=== PATIENT | male | born 1950 | race Caucasian/White ===

== ENCOUNTER → 2020-10-08 | Outpatient (CLI) | payer MEDICARE, OTHER ==
--- NOTE | 2020-10-11 03:21 | ECWPNPC ---
PATIENT NAME: JOSIAH ANDREWS : 1950 GENDER: MALE VISIT DATE: 10/08/2020 DISCHARGE DATE: 10/08/20 1439 VISIT LOCKED DATE TIME: PHYSICIAN: ADAN ANTHONY RESOURCE: ADAN ANTHONY REASON FOR APPOINTMENT 1. CHRONIC BACK PAIN HISTORY OF PRESENT ILLNESS DEPRESSION SCREENING: PHQ-2 (2015 EDITION) LITTLE INTEREST OR PLEASURE IN DOING THINGS?NOT AT ALL FEELING DOWN, DEPRESSED, OR HOPELESS?NOT AT ALL TOTAL SCORE0 GENERAL: 70 Y/O GENTLEMAN REFERRED BY [facility] TO EVALUATE CHRONIC LOW BACK PAIN.HAS PARKINSONS DISEASE THAT IS QUITE ADVANCED.IT IS VERY DIFFICULT FOR HIM TO STAND UNASSISTED.STATES PAIN IS SO BAD IN HIS BACK,LEGS AND KNEES THAT HE HAS TO CRAWL TO BATHROOM IN AM.CURRENTLY ATTENDING PT.HAVING LESS FALLING EPISODES SINCE HAVING CHANGES IN HIS PARKINSONS MEDICATIONS. ACCOMPANIED IN EXAM ROOM WITH HIS . REVIEWED MRI OF THE LUMBAR SPINE AND DISCUSS TREATMENT PLAN. - - -. FALL RISK SCREENING: SCREENING SEVERAL FALL AT HOME DUE TO HIS BALANCE PROBLEMS. PAIN SCREENING: PATIENT HAS A COMPLAINT OF ACUTE OR CHRONIC PAIN :YES LOCATION OF PAIN:LOW BACK INTENSITY OF PAIN (SCALE OF 1 TO 10):4 WHAT DOES YOUR PAIN FEEL LIKE:ACHING, CONTINOUS DURATION:CONTINOUS, CONSTANT, ALL DAY PAIN IS INCREASED BY:ACTIVITIES PAIN IS DECREASED BY:USE OF PAIN MEDICATIONS, OTHERS RESTING NURSING NOTE: - - -. PAIN CENTER INTAKE QUESTIONS: DO YOU HAVE A HISTORY OF MRSA? :NO DO YOU TAKE A BLOOD THINNERS? :NO DO YOU HAVE ANY BLEEDING DISORDERS? :NO ANY NEW NUMBNESS OR WEAKNESS IN YOUR LEGS OR ARMS? :YES BILATERAL LEGS ANY PACEMAKER,DEFIBRILLATOR, OR DORSAL COLUMN STIMULATOR? :NO DO YOU HAVE ANY RASHES OR OPEN SORES? :NO ARE YOU ALLERGIC TO IV DYE? :NO ARE YOU DIABETIC? :NO ANY NEW PROBLEMS WITH YOUR MEDICATIONS? :NO HAVE YOU RECEIVED A VACCINE IN THE PAST 30 DAYS? :NO DO YOU PLAN TO RECEIVE A VACCINE IN THE NEXT 21 DAYS? :NO DO YOU NEED ANY PRESCRIPTION? :NO DO YOU TAKE ANY IMMUNOSUPPRESSIVE MEDICATIONS? :NO IS THERE A CHANCE YOU COULD BE ? :NO ARE YOU BREAST FEEDING? :NO CURRENT MEDICATIONS TAKING ATENOLOL 50 MG TABLET 1 TABLET ORALLY ONCE A DAY TAKING CARBIDOPA-LEVODOPA 25-100 MG TABLET 1 TABLET ORALLY TWICE A DAY TAKING CARBIDOPA-LEVODOPA ER 50-200 MG TABLET EXTENDED RELEASE 1 TABLET ORALLY TWICE A DAY TAKING DULOXETINE HCL 30 MG CAPSULE DELAYED RELEASE PARTICLES 1 CAPSULE ORALLY ONCE A DAY TAKING ETODOLAC 300 MG CAPSULE 1 CAPSULE WITH FOOD ORALLY TWICE A DAY TAKING HYDROCHLOROTHIAZIDE 25 MG TABLET 1 TABLET IN THE MORNING ORALLY ONCE A DAY TAKING OXYCODONE-ACETAMINOPHEN 5-325 MG TABLET 1 TABLET NEEDED ORALLY EVERY 6 HRS TAKING AZILECT 1 MG TABLET 1 TABLET ORALLY ONCE A DAY TAKING ROPINIROLE HCL 1 MG TABLET 1 TABLET 1 TO 3 HOURS BEFORE BEDTIME ORALLY ONCE A DAY TAKING FLOMAX 0.4 MG CAPSULE 1 CAPSULE ORALLY ONCE A DAY TAKING TIZANIDINE HCL 2 MG TABLET 1 TABLET NEEDED ORALLY THREE TIMES A DAY, NOTES: NOT SURE HOW MANY TIME A DAY TAKING MELATONIN 200 MCG TABLET DIRECTED ORALLY , NOTES: NOT SURE THE DOSE TAKING VITAMIN D3 10 MCG (400 UNIT) TABLET 1 TABLET ORALLY ONCE A DAY TAKING STOOL SOFTENER 100 MG TABLET 1 TABLET NEEDED ORALLY ONCE A DAY TAKING COQ-10 50 MG CAPSULE DIRECTED ORALLY , NOTES: NOT SURE OF DOSE MEDICATION LIST REVIEWED AND RECONCILED WITH THE PATIENT PAST MEDICAL HISTORY BALANCE DIFFICULTIES PARKINSON'S DISEASE DYSKINESIA LOW BACK PAIN BILATERAL KNEE PAIN TORN MENISCUS INTERMITTED BLADDER INCONTINENCE OCCASIONAL BOWEL CONSTIPATION SMOKER SEVERAL FALL AT HOME DUE TO HIS BALANCE PROBLEMS LEFT SHOULDER PAIN ALLERGIES N.K.D.A. SURGICAL HISTORY LEFT SHOULDER SURG 1991 VASECTOMY 1990 HERNIA SURG MID FAMILY HISTORY FATHER: ALIVE 91 YRS MOTHER: 54 YRS, CANCER SIBLINGS: ALIVE 71 YRS SON(S): ALIVE 1 BROTHER(S) . 4 SON(S) , 1 DAUGHTER(S) - HEALTHY. ONE SON . SOCIAL HISTORY GENERAL: TOBACCO USE ARE YOU A:CURRENT SMOKER ARE YOU INTERESTED IN QUITTING?THINKING ABOUT QUITTING COUNSELED THE PATIENT ON SMOKING CESSATION, EDUCATION [id number]/23/2021 HOW MANY CIGARETTES A DAY DO YOU SMOKE?6-10 HOW SOON AFTER YOU WAKE UP DO YOU SMOKE YOUR FIRST CIGARETTE?AFTER 60 MIN HOW OFTEN DO YOU SMOKE CIGARETTES?EVERY DAY PATIENT COUNSELED ON THE DANGERS OF TOBACCO USE AND URGED TO QUIT:10/08/2020 LATEX QUESTIONNAIRE LATEX ALLERGY : HAVE YOU EVER DEVELOPED ANY TYPE OF REACTION AFTER HANDLING LATEX PRODUCTS SUCH RUBBER GLOVES, CONDOMS, DIAPHRAGMS, BALLOONS, SOCKS, OR UNDERWEAR?NO LATEX ALLERGY : HAVE YOU EVER DEVELOPED ANY TYPE OF REACTION DURING OR AFTER DENTAL APPOINTMENT, VAGINAL/RECTAL EXAMINATION, SURGICAL PROCEDURE, OR ANY OTHER EXPOSURE?NO LATEX RISK : HAVE YOU EVER HAD ANY DIFFICULTY BREATHING OR HIVES AFTER EATING OR HANDLING ANY FRUITS, OR VEGETABLES; SUCH KIWI, BANANAS, STONE FRUITS, OR CHESTNUTSNO LATEX RISK : DO YOU HAVE A PREVIOUS PERSONAL HISTORY OF MORE THAN NINE SURGERIES, SPINA BIFIDA, OR REPEATED CATHERIZATIONS? NO LATEX RISK : ARE YOU FREQUENTLY EXPOSED TO LATEX PRODUCTS IN YOUR OCCUPATION?NO DATE ASKED : 10/08/2020 ALCOHOL USE: YES, 2 CANS OF BEER PER WEEK. LUNG CANCER SCREENING SMOKING STATUS:CURRENT SMOKER IS THE PATIENT BETWEEN THE AGE OF 57 AND 79?YES HAS THE PATIENT EVER BEEN DIAGNOSED WITH LUNG CANCER?NO RECREATIONAL DRUG USE DRUG USE?NO LANGUAGE LANGUAGES SPOKEN:[place]ER[place] LEONEAN LEARNING BARRIERS / SPECIAL NEEDS CHANGE FROM LAST VISIT?NO BARRIERS TO LEARNING?NO HEARING IMPAIRED?YES VISION IMPAIRED?YES :CORRECTIVE LENSES COGNITIVELY IMPAIRED?NO READINESS TO LEARN?YES LEARNING PREFERENCES?NO LEARNING CAPABILITIES PRESENT?YES EMOTIONAL BARRIERS?YES COMMENTS DEPRESSION SPECIAL DEVICES?YES :WALKER, WHEELCHAIR NEEDED SERVICE CLEANER NEEDED?NO MARITAL STATUS: . HOSPITALIZATION/MAJOR DIAGNOSTIC PROCEDURE LEFT SHOULDER HEIDI 1991 REVIEW OF SYSTEMS CONSTITUTIONAL: ANY RECENT FEVER NO . CHILLS NO . WEIGHT CHANGE OF UNKNOWN REASONS NO . GASTROENTEROLOGY: NEW UNEXPLAINABLE CHANGES IN BOWEL CONTROL NO . CONSTIPATION NO . GENITOURINARY: ANY NEW CHANGE IN BLADDER CONTROL? NO . NEUROLOGY: NEW ONSET DIZZINESS OR NEUROLOGICAL CHANGES NOT MENTIONED NO . NEW NUMBNESS OR PAIN PATTERNS NOT MENTIONED AND PERTINENT TO TODAY'S VISIT NO . CARDIOLOGY: NEW CHEST PRESSURE NO . PATIENT DENIES NO . RESPIRATORY: UNEXPLAINABLE COUGH NO . NEW SHORTNESS OF BREATH NO . VITAL SIGNS WT 206.0 LBS, HT 58 IN, BMI 43.05 INDEX, BP 150/91 MM HG, REPEAT BP 127/88 MM HG, HR 68 /MIN, RR 18 /MIN, TEMP 98.7 F, OXYGEN SAT % 97%, SAFE IN ENV? (Y/N) YES, NA INITIALS AW [email or web address].JEROME GOMEZ. EXAMINATION GENERAL EXAMINATION: GENERALNO ACUTE DISTRESS, WELL NOURISHED AND HYDRATED.IN WHEELCHAIR.DYSKINESIC MOVEMENT NOTED THROUGHOUT VISIT.. NECK:NO LYMPHADENOPATHY, SUPPLE. LUNGS:CLEAR TO AUSCULTATION BILATERALLY, NO WHEEZES, RHONCHI, RALES. HEART:NO MURMURS, REGULAR RATE AND RHYTHM. MUSCULOSKELETAL:SLIGHT WEAKNESS NOTED OVER LOWER EXTREMITIES.. LUMBAR: RELATIVELY NON TENDER ON EXAM. DIAGNOSTIC TESTS REVIEWED MRI L/S SPINE-06/17/20. ASSESSMENTS SPINAL STENOSIS, LUMBOSACRAL REGION - M48.07 (PRIMARY) TREATMENT SPINAL STENOSIS, LUMBOSACRAL REGION START BELBUCA 150 MCG FILM, 150 MCG, 1 FILM, BUCCAL, Q12H MDD2, 30 DAYS, 60, REFILLS 1 NOTES: START BELBUCA 150 MCG TWICE DAILY/PLACE IN CHEEK AND HOLD UNTIL DISSOLVED.ONLY USE OXYCODONE IF ABSOLUTELY NECESSARY ONCE STARTING BELBUCA.WE WILL SCHEDULE PHONE FOLLOW UP APPOINTMENT IN 2 WEEKS. , [employer] REGISTRY REVIEWED AND DEMONSTRATES COMPLLIANCE. PROCEDURE CODES FA211 ESTABILISHED PATIENT [facility] CHARGE DISPOSITION & COMMUNICATION FOLLOW UP 2 WKS PHONE F/U/CHECK ON BELBUCA (REASON: LOW BACK PAIN/MED MGMNT) ELECTRONICALLY SIGNED BY HOSSEIN ALLEN ON 10/10/2020 AT 12:26 PM EDT DISCLAIMER : THIS IS A VISIT SUMMARY EXTRACTED FROM THE [employer] CHART. IT IS NOT A COPY OF THE [employer] PROGRESS NOTE. BOB
== END ==
LOC: M PAIN 13:30
PROVIDERS: ATTEND Nurse Practitioner Family
DX: M48.07 Spinal stenosis, lumbosacral region (principal); G20 Parkinson's disease; M54.5 Low back pain; M25.511 Pain in right shoulder; G24.9 Dystonia, unspecified; M25.561 Pain in right knee; F17.210 Nicotine dependence, cigarettes, uncomplicated; M25.562 Pain in left knee; Z79.891 Long term (current) use of opiate analgesic; Z79.899 Other long term (current) drug therapy

== ENCOUNTER → 2020-10-22 | Outpatient (CLI) | payer MEDICARE, OTHER ==
--- NOTE | 2020-10-24 00:49 | ECWPNPC ---
PATIENT NAME: JOSIAH ANDREWS : 1950 GENDER: MALE VISIT DATE: 10/22/2020 DISCHARGE DATE: 10/22/20926 VISIT LOCKED DATE TIME: PHYSICIAN: ADAN ANTHONY RESOURCE: ADAN ANTHONY REASON FOR APPOINTMENT 1. LOW BACK PAIN/MED MGMNT HISTORY OF PRESENT ILLNESS GENERAL: PATIENT IS AGREEABLE TO TELEPHONE VISIT TODAY. AT HIS INITIAL VISIT A FEW WEEKS AGO WE STARTED HIM ON BELBUCA FOR CHRONIC PAIN. HISTORY OF CHRONIC LOW BACK PAIN AND ADVANCED PARKINSON'S DISEASE. HE IS MAINLY WHEELCHAIR DEPENDENT. PATIENT DECIDED NOT TO START BELBUCA. HE WAS FEARFUL OF ADDICTION. FINDS PERCOCET PERIODICALLY FOR SEVERE PAIN EPISODES EFFECTIVE. DISCUSSED MEDICATIONS AT LENGTH. IN THE END PATIENT HAS DECIDED TO CONTINUE WITH PERCOCET. -. FALL RISK SCREENING: SCREENING HAD A COUPLE OF FALLS THIS YEAR AND A FEW LAST MONTH 09/2020. TWO FALLS HE DID HAVE STIITCHES IN HEAD AND CHIN AREA. PAIN SCREENING: PATIENT HAS A COMPLAINT OF ACUTE OR CHRONIC PAIN :YES LOCATION OF PAIN:LOW BACK INTENSITY OF PAIN (SCALE OF 1 TO 10):7 WHAT DOES YOUR PAIN FEEL LIKE:ACHING, INTERMITTENT DURATION:STEADY, ONLY WITH SPECIFIC ACTIVITIES PAIN IS INCREASED BY:ACTIVITIES PAIN IS DECREASED BY:USE OF PAIN MEDICATIONS NURSING NOTE: -. PAIN CENTER INTAKE QUESTIONS: DO YOU HAVE A HISTORY OF MRSA? :NO DO YOU TAKE A BLOOD THINNERS? :NO DO YOU HAVE ANY BLEEDING DISORDERS? :NO ANY NEW NUMBNESS OR WEAKNESS IN YOUR LEGS OR ARMS? :YES BILATERAL LEGS, LEFT MORE SO THEN RIGHT ANY PACEMAKER,DEFIBRILLATOR, OR DORSAL COLUMN STIMULATOR? :NO DO YOU HAVE ANY RASHES OR OPEN SORES? :NO ARE YOU ALLERGIC TO IV DYE? :NO ARE YOU DIABETIC? :NO ANY NEW PROBLEMS WITH YOUR MEDICATIONS? :NO HAVE YOU RECEIVED A VACCINE IN THE PAST 30 DAYS? :NO DO YOU PLAN TO RECEIVE A VACCINE IN THE NEXT 21 DAYS? :NO DO YOU NEED ANY PRESCRIPTION? :NO DO YOU TAKE ANY IMMUNOSUPPRESSIVE MEDICATIONS? :NO IS THERE A CHANCE YOU COULD BE ? :NO ARE YOU BREAST FEEDING? :NO CURRENT MEDICATIONS TAKING ATENOLOL 50 MG TABLET 1 TABLET ORALLY ONCE A DAY TAKING CARBIDOPA-LEVODOPA 25-100 MG TABLET 1 TABLET ORALLY TWICE A DAY TAKING CARBIDOPA-LEVODOPA ER 50-200 MG TABLET EXTENDED RELEASE 1 TABLET ORALLY TWICE A DAY TAKING DULOXETINE HCL 30 MG CAPSULE DELAYED RELEASE PARTICLES 1 CAPSULE ORALLY ONCE A DAY TAKING ETODOLAC 300 MG CAPSULE 1 CAPSULE WITH FOOD ORALLY TWICE A DAY TAKING HYDROCHLOROTHIAZIDE 25 MG TABLET 1 TABLET IN THE MORNING ORALLY ONCE A DAY TAKING AZILECT 1 MG TABLET 1 TABLET ORALLY ONCE A DAY TAKING ROPINIROLE HCL 1 MG TABLET 1 TABLET 1 TO 3 HOURS BEFORE BEDTIME ORALLY ONCE A DAY TAKING FLOMAX 0.4 MG CAPSULE 1 CAPSULE ORALLY ONCE A DAY TAKING TIZANIDINE HCL 2 MG TABLET 1 TABLET NEEDED ORALLY THREE TIMES A DAY, NOTES: NOT SURE HOW MANY TIME A DAY TAKING MELATONIN 200 MCG TABLET DIRECTED ORALLY , NOTES: NOT SURE THE DOSE TAKING VITAMIN D3 10 MCG (400 UNIT) TABLET 1 TABLET ORALLY ONCE A DAY TAKING STOOL SOFTENER 100 MG TABLET 1 TABLET NEEDED ORALLY ONCE A DAY TAKING COQ-10 50 MG CAPSULE DIRECTED ORALLY , NOTES: NOT SURE OF DOSE TAKING BELBUCA 150 MCG 150 MCG FILM 1 FILM BUCCAL Q12H MDD2 TAKING OXYCODONE-ACETAMINOPHEN 5-325 MG TABLET 1 TABLET NEEDED ORALLY DAILY PRN SEVERE PAIN MDD1 MEDICATION LIST REVIEWED AND RECONCILED WITH THE PATIENT PAST MEDICAL HISTORY BALANCE DIFFICULTIES PARKINSON'S DISEASE DYSKINESIA LOW BACK PAIN BILATERAL KNEE PAIN TORN MENISCUS INTERMITTED BLADDER INCONTINENCE OCCASIONAL BOWEL CONSTIPATION SMOKER SEVERAL FALL AT HOME DUE TO HIS BALANCE PROBLEMS LEFT SHOULDER PAIN HAD A COUPLE OF FALLS THIS YEAR AND A FEW LAST MONTH 09/2020. TWO FALLS HE DID HAVE STIITCHES IN HEAD AND CHIN AREA. ALLERGIES N.K.D.A. SURGICAL HISTORY LEFT SHOULDER SURG 1991 VASECTOMY 1990 HERNIA SURG FAMILY HISTORY FATHER: ALIVE 91 YRS MOTHER: 54 YRS, CANCER SIBLINGS: ALIVE 71 YRS SON(S): ALIVE 1 BROTHER(S) . 4 SON(S) , 1 DAUGHTER(S) - HEALTHY. ONE SON . SOCIAL HISTORY GENERAL: TOBACCO USE ARE YOU A:CURRENT SMOKER ARE YOU INTERESTED IN QUITTING?THINKING ABOUT QUITTING COUNSELED THE PATIENT ON SMOKING CESSATION, EDUCATION [id number]/07/2021 HOW MANY CIGARETTES A DAY DO YOU SMOKE?6-10 HOW SOON AFTER YOU WAKE UP DO YOU SMOKE YOUR FIRST CIGARETTE?AFTER 60 MIN TILL AFTER NOON HOW OFTEN DO YOU SMOKE CIGARETTES?EVERY DAY PATIENT COUNSELED ON THE DANGERS OF TOBACCO USE AND URGED TO QUIT:10/22/2020 LATEX QUESTIONNAIRE LATEX ALLERGY : HAVE YOU EVER DEVELOPED ANY TYPE OF REACTION AFTER HANDLING LATEX PRODUCTS SUCH RUBBER GLOVES, CONDOMS, DIAPHRAGMS, BALLOONS, SOCKS, OR UNDERWEAR?NO LATEX ALLERGY : HAVE YOU EVER DEVELOPED ANY TYPE OF REACTION DURING OR AFTER DENTAL APPOINTMENT, VAGINAL/RECTAL EXAMINATION, SURGICAL PROCEDURE, OR ANY OTHER EXPOSURE?NO LATEX RISK : HAVE YOU EVER HAD ANY DIFFICULTY BREATHING OR HIVES AFTER EATING OR HANDLING ANY FRUITS, OR VEGETABLES; SUCH KIWI, BANANAS, STONE FRUITS, OR CHESTNUTSNO LATEX RISK : DO YOU HAVE A PREVIOUS PERSONAL HISTORY OF MORE THAN NINE SURGERIES, SPINA BIFIDA, OR REPEATED CATHERIZATIONS? NO LATEX RISK : ARE YOU FREQUENTLY EXPOSED TO LATEX PRODUCTS IN YOUR OCCUPATION?NO DATE ASKED : 10/22/2020 ALCOHOL USE: YES, 2 CANS OF BEER PER WEEK. LUNG CANCER SCREENING SMOKING STATUS:CURRENT SMOKER IS THE PATIENT BETWEEN THE AGE OF 57 AND 79?YES HAS THE PATIENT EVER BEEN DIAGNOSED WITH LUNG CANCER?NO RECREATIONAL DRUG USE DRUG USE?NO LANGUAGE LANGUAGES SPOKEN:GREEK LEARNING BARRIERS / SPECIAL NEEDS CHANGE FROM LAST VISIT?NO BARRIERS TO LEARNING?NO HEARING IMPAIRED?YES : SOME TIMES VISION IMPAIRED?YES :CORRECTIVE LENSES COGNITIVELY IMPAIRED?NO READINESS TO LEARN?YES LEARNING PREFERENCES?NO LEARNING CAPABILITIES PRESENT?YES EMOTIONAL BARRIERS?YES COMMENTS DEPRESSION SPECIAL DEVICES?YES :WALKER, WHEELCHAIR NEEDED SKULL SPLITTER NEEDED?NO MARITAL STATUS: . HOSPITALIZATION/MAJOR DIAGNOSTIC PROCEDURE LEFT SHOULDER HEIDI 1991 REVIEW OF SYSTEMS CONSTITUTIONAL: ANY RECENT FEVER NO . CHILLS NO . WEIGHT CHANGE OF UNKNOWN REASONS NO . GASTROENTEROLOGY: NEW UNEXPLAINABLE CHANGES IN BOWEL CONTROL NO . CONSTIPATION NO . GENITOURINARY: ANY NEW CHANGE IN BLADDER CONTROL? NO . NEUROLOGY: NEW ONSET DIZZINESS OR NEUROLOGICAL CHANGES NOT MENTIONED NO . NEW NUMBNESS OR PAIN PATTERNS NOT MENTIONED AND PERTINENT TO TODAY'S VISIT NO . CARDIOLOGY: NEW CHEST PRESSURE NO . PATIENT DENIES NO . RESPIRATORY: UNEXPLAINABLE COUGH NO . NEW SHORTNESS OF BREATH NO . VITAL SIGNS WT 206 LBS, WT-KG 0 KG, HT 58 IN, BMI 43.05 INDEX, BP 0 MM HG, SAFE IN ENV? (Y/N) YESUNABLE TO OBTAIN VITALS DUE TO TELE VISIT- MARLEY GOMEZ. ASSESSMENTS SPINAL STENOSIS, LUMBOSACRAL REGION - M48.07 (PRIMARY) TREATMENT SPINAL STENOSIS, LUMBOSACRAL REGION NOTES: PATIENT WILL CONTACT US FOR FOLLOW-UP IF HE DECIDES TO WANT MEDICATIONS FOR CHRONIC PAIN. HE COULD ALSO BENEFIT POSSIBLY FROM TRIGGER POINT INJECTIONS OR LUMBAR FACET BLOCKS. TOTAL TIME SPENT DURING TELEPHONE VISIT WAS APPROXIMATELY 11 MINUTES. DISPOSITION & COMMUNICATION FOLLOW UP PATIENT WILL CALL FOR FOLLOW-UP IF NECESSARY (REASON: LUMBAR SPINAL STENOSIS) ELECTRONICALLY SIGNED BY HOSSEIN ALLEN ON 10/23/2020 AT 01:23 PM EDT DISCLAIMER : THIS IS A VISIT SUMMARY EXTRACTED FROM THE [employer] CHART. IT IS NOT A COPY OF THE [employer] PROGRESS NOTE. BOB
== END ==
LOC: M PAIN 14:45
PROVIDERS: ATTEND Nurse Practitioner Family
DX: M48.07 Spinal stenosis, lumbosacral region (principal); R26.89 Other abnormalities of gait and mobility; G20 Parkinson's disease; M54.5 Low back pain; M25.561 Pain in right knee; M25.562 Pain in left knee; F17.210 Nicotine dependence, cigarettes, uncomplicated; Z79.891 Long term (current) use of opiate analgesic; Z79.899 Other long term (current) drug therapy